=== PATIENT | female | born 1930 | race Caucasian/White ===

== ENCOUNTER 2017-05-04 20:29 | Emergency (ER) | payer OTHER ==
[~2017-05-04] VITALS: Ht 152.4 cm; Wt 54.4 kg
[~2017-05-04 20:29] MED LIST: FLUO10CA26 PO; LEVO50TA12 PO; LOSA100T15 PO; METO-302 PO; OMEP20TA68 PO; SIMV80TA5 PO; WARF1TAB47 PO
--- NOTE | 2017-05-04 20:40 | NUR ---
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 PER DENIES SOB, WITH NAUSEA. PER PATIENT PAIN HAS GOTTEN BETTER SINCE MORNING. PATIENT IS AAOX4, AMBULATORY WITH STEADY GAIT. VSS. AFEBRILE. NONDIAPHORETIC. CARDIAC AND VS MONITOR ONGOING. COMFORT MEASURES RENDERED. AWAITING FOR ER MD ENRIQUE.
--- NOTE | 2017-05-04 20:45 | NUR ---
DR BLAKELY AT BEDSIDE FOR EVAL.
--- NOTE | 2017-05-04 20:49 | NUR ---
TECH AT BEDSIDE FOR EKG.
--- NOTE | 2017-05-04 20:51 | NUR ---
started a saline lock on the lac g20, blood drawn and sent to lab.
[2017-05-04] MEDS ORDERED: ASPIRIN 325 MG TABLET ONE (20:53)
[2017-05-04 20:56] LABS: BASOPHILS # (AUTO) 0.1 /CMM (0.0-0.2); BASOPHILS % (AUTO) 0.6 % (0.0-2.0); EOSINOPHILS # (AUTO) 0.2 /CMM (0.0-0.7); EOSINOPHILS % (AUTO) 2.3 % (0.0-6.0); HEMATOCRIT 39 % (33-45); HEMOGLOBIN 12.9 g/dL (11.5-14.8); LYMPHOCYTES # (AUTO) 1.4 /CMM (0.8-4.8); LYMPHOCYTES % (AUTO) 14.5 % (20.0-44.0); MEAN CORPUSCULAR HEMOGLOBIN 32 PG (26.0-33.0); MEAN CORPUSCULAR HGB CONC 33 g/dl (31.0-36.0); MEAN CORPUSCULAR VOLUME 97 fL (82-100); MONOCYTES # (AUTO) 0.5 /CMM (0.1-1.30); MONOCYTES % (AUTO) 5.6 % (2.0-12.0); NEUTROPHILS # (AUTO) 7.5 /CMM (1.8-8.9); PLATELET COUNT (AUTO) 213 /CMM (150-450); RED BLOOD CELL COUNT(AUTO) 3.99 MIL/uL (4.0-5.2); WHITE BLOOD COUNT (AUTO) 9.7 K/uL (4.3-11.0)
[2017-05-04] MEDS ORDERED: ASPIRIN 325 MG TABLET PO ONE (21:00)
[2017-05-04 21:05] LABS: CALCIUM, SERUM 9.2 mg/dL (8.5-10.1); CARBON DIOXIDE 25 mmol/L (21-32); CHLORIDE 101 mmol/L (98-107); CREATININE 1.6 mg/dL (0.6-1.3); GLUCOSE 115 mg/dL (74-106); POTASSIUM 3.7 mmol/L (3.5-5.1); SODIUM SERUM 137 mmol/L (136-145); UREA NITROGEN, BLOOD 24 mg/dL (7-18)
[2017-05-04 21:09] LABS: INR 1.63 (0.87-1.13); PROTHROMBIN TIME 17.4 SECS (9.5-12.7)
[2017-05-04 21:27] LABS: TROPONIN I 7.651 ng/mL (0.00-0.056)
--- NOTE | 2017-05-04 21:36 | NUR ---
DR BLAKELY ON THE PHONE WITH SCALE TESTER DR MOMIN.
--- NOTE | 2017-05-04 21:41 | NUR ---
CALLED [facility] TELESTROKE [facility]OTLINE . FAXED OVER FACESHEET AND EKG.
--- NOTE | 2017-05-04 22:11 | NUR ---
second iv access started on the rac g18, good blood return, flushed with ns with ease, tape securely.
[2017-05-04] MEDS ORDERED: HEPARIN INFUSION/D5W 500 ML IV ONE (22:18)
--- NOTE | 2017-05-04 22:18 | NUR ---
DR BLAKELY ON THE PHONE WITH DR GOMEZ.
[2017-05-04] MEDS ORDERED: HEPARIN INFUSION/D5W 500 ML IV PRN (22:30)
--- NOTE | 2017-05-04 22:34 | NUR ---
CALL FROM [facility]. ETA FOR TRANSPORT 1 HR
--- NOTE | 2017-05-04 22:35 | NUR ---
heparin drip started at 825units/hr, verified with CN Chnete. Next ptt will be 0435. will monitor patient for adverse effects.
[2017-05-04 22:42] VITALS: BP 143/83
--- NOTE | 2017-05-04 22:46 | NUR ---
CALL FROM TIBURCIO WOLFF- [facility], ICU BED 2213, # FOR REPORT [phone].
--- NOTE | 2017-05-04 22:53 | NUR ---
Report given to Hilario WOLFF in [facility] ICU for transfer and brian.
--- NOTE | 2017-05-04 23:12 | NUR ---
Endorsed care to ems for transport, vss, patient remains alert oriented, no acute changes.
== END 2017-05-04 23:14 | disposition short-term general hospital (02) ==
LOC: ER 20:30 → UNDOADMIN 21:32 → TELE1 21:32 → ER 23:14
DX: R07.89 Other chest pain (principal); I48.91 Unspecified atrial fibrillation; R79.89 Other specified abnormal findings of blood chemistry; I10 Essential (primary) hypertension; M54.6 Pain in thoracic spine
CPT/HCPCS: 36415; 71010; 80048; 84484; 85025; 85730; 87081; 93005 ×2; 96374; 99291; 99292; A4606; J1644; Z7610

== ENCOUNTER 2017-10-01 18:25 | Inpatient (IN) | payer OTHER ==
[~2017-10-01] VITALS: Ht 157.5 cm; Wt 49.9 kg
[~2017-10-01 18:25] MED LIST changes: -METO-302 PO; +METO-356 PO; +OMEP20TA5 PO; -OMEP20TA68 PO
--- NOTE | 2017-10-01 18:40 | NUR ---
RECIEVED PT TO ED BED 01, PT WAS [id number] FROM HOME FOR POOR APPETITE, FAILURE TO THRIVE, GENERALIZED WEAKNESS. HER GRANDAUGHTER CALLED 911. PT HAS A H/O DEMENTIA. DENIES ANY COMPLAINTS AT THIS TIME. NAD VSS RR EVEN AND UNLABORED.KEPT WARM AND COMFORTABLE. PENDING ER MD ENRIQUE
[2017-10-01 18:57] LABS: BASOPHILS % (AUTO) 0.4 % (0.0-2.0); EOSINOPHILS % (AUTO) 0.1 % (0.0-6.0); HEMATOCRIT 40 % (33-45); HEMOGLOBIN 13.7 g/dL (11.5-14.8); LYMPHOCYTES # (AUTO) 0.6 /CMM (0.8-4.8); LYMPHOCYTES % (AUTO) 6.2 % (20.0-44.0); MEAN CORPUSCULAR HEMOGLOBIN 32 PG (26.0-33.0); MEAN CORPUSCULAR HGB CONC 34 g/dl (31.0-36.0); MEAN CORPUSCULAR VOLUME 93 fL (82-100); MONOCYTES # (AUTO) 0.8 /CMM (0.1-1.30); MONOCYTES % (AUTO) 8.3 % (2.0-12.0); NEUTROPHILS # (AUTO) 8.4 /CMM (1.8-8.9); PLATELET COUNT (AUTO) 255 /CMM (150-450); RDW COEFFICIENT OF VARIATION 13.6 (11.5-15.0); RED BLOOD CELL COUNT(AUTO) 4.34 MIL/uL (4.0-5.2); WHITE BLOOD COUNT (AUTO) 9.8 K/uL (4.3-11.0)
[2017-10-01] MEDS ORDERED: IV NS 0.9% 500 ML BAG IV ONE (19:00)
[2017-10-01 19:01] LABS: CALCIUM, SERUM 9.7 mg/dL (8.5-10.1); CARBON DIOXIDE 28 mmol/L (21-32); CHLORIDE 103 mmol/L (98-107); CREATININE 1.4 mg/dL (0.6-1.3); GLUCOSE 171 mg/dL (74-106); POTASSIUM 3.6 mmol/L (3.5-5.1); SODIUM SERUM 141 mmol/L (136-145); UREA NITROGEN, BLOOD 16 mg/dL (7-18)
[2017-10-01 19:07] LABS: ALANINE AMINOTRANSFERASE 14 U/L (12-78); ALBUMIN 3.5 g/dL (3.4-5.0); ALKALINE PHOSPHATASE 68 U/L (46-116); ASPARTATE AMINOTRANSFERASE 24 U/L (15-37); BILIRUBIN,DIRECT 0.2 mg/dL (0.0-0.2); BILIRUBIN,TOTAL 1.2 mg/dL (0.2-1.0); TOTAL PROTEIN, SERUM 8.1 g/dL (6.4-8.2)
[2017-10-01 19:09] LABS: TROPONIN I 0.063 ng/mL (0.00-0.056)
[2017-10-01 19:11] LABS: INR 1.29 (0.87-1.13); PROTHROMBIN TIME 13.4 SECS (9.5-12.7)
--- NOTE | 2017-10-01 19:16 | NUR ---
REPORT GIVEN TO VIVEK WOLFF FOR CONT OF CARE
[2017-10-01 19:25] LABS: APPEARANCE,URINE Clear (CLEAR); BILIRUBIN,URINE SMALL (NEGATIVE); BLOOD, URINE Trace-intact Ery/uL (NEGATIVE); COLOR,URINE Yellow (YELLOW); KETONES,URINE 15 (NEGATIVE); LEUKOCYTE ESTERASE ,URINE Negative (NEGATIVE); NITRITE, URINE Negative (NEGATIVE); PROTEIN,URINE 100 mg/dl (NEGATIVE); UGLUCOSE Negative (NEGATIVE)
--- NOTE | 2017-10-01 19:33 | NUR ---
xr at bedside.
[2017-10-01 19:44] LABS: BACTERIA,URINE Few /HPF (None Seen); SQUAMOUS EPITHELIAL CELL,UR Few /HPF (None Seen)
--- NOTE | 2017-10-01 20:21 | NUR ---
TELE ROOM 314-3
--- NOTE | 2017-10-01 20:27 | NUR ---
REPORT GIVEN TO LACEY WOLFF FOR ADMISSION AND FRANK.
[2017-10-01] MEDS ORDERED: ACETAMINOPHEN 650 MG/SUPP.RECT RC PRN (20:30)
[2017-10-01] MEDS ORDERED: Z GUARD REMEDY 2 OZ OINT TP PRN (20:30)
[2017-10-01] MEDS ORDERED: ONDANSETRON HCL/PF 4 MG/2 ML VIAL IVP PRN (20:30)
[2017-10-01 20:50] VITALS: BP 139/73
--- NOTE | 2017-10-01 20:50 | NUR ---
NEW ADMISSION RECEIVED REPORT FROM RAMIRO ESTABLISHMENT GUIDE, PATIENT RECEIVED FROM ER VIA BARBARA ACCOMPANIED BY STAFF. A & O X 1 WITH CONFUSION & FORGETFULNESS DUE TO DEMENTIA. ABLE TO MAKE SIMPLE NEEDS KNOWN WHEN ASKED. NO S/S OF PAIN, NO SOB, NO ACUTE DISTRESS NOTED. AT RA. IV ACCESS TO RAC RUNNING WITH IVF, INTACT PATENT. BODY ASSESSMENT DONE, NOTED LEFT KNEE SWOLLEN, PT DOESN'T REMEMBER WHAT CAUSED HER LEFT KNEE SWELLING, POOR HISTORIAN. ALL BELONGINGS ACCOUNTED FOR & DOCUMENTED BY PHYSICIAN IN PRIVATE PRACTICE. INCONTINENT OF B & BM, USES DIAPER. ON BED REST DUE TO WEAKNESS. UNABLE TO WALK, FALL RISK. NPO. SAFETY MEASURES IN PLACE, BED ALARM ON & IN LOW LOCKED POSITION. CALL LIGHT WITHIN REACH. MONITORING CLOSELY FOR SAFETY & COMFORT.
--- NOTE | 2017-10-01 20:50 | NUR ---
ADDENDUM PATIENT ON TELE MONITORING UPON ADMISSION WITH A FIB 86. NO OTHER COMPLICATIONS NOTED. MONITORING CLOSELY.
--- NOTE | 2017-10-01 20:53 | NUR ---
TRANSFERRED PATIENT TO TELE BED VIA ALS PROTOCOL, NO INCIDENT NOTED.
[2017-10-01 20:55] VITALS: BP 139/73
--- NOTE | 2017-10-01 21:54 | NUR ---
HELD ZOCOR PATIENT IS NPO & ZOCOR NOT GIVEN SCHEDULED. AWARE.
[2017-10-01] MEDS ORDERED: SIMVASTATIN 10 MG TABLET PO SCH (22:00)
--- NOTE | 2017-10-01 22:15 | NUR ---
CLARIFIED ORDER WITH MD SPOKE TO MD REGARDING PATIENT SCHEDULED FOR PO MEDS TONIGHT BUT NPO @ THIS TIME. MD ORDERED PT TO BE NPO EXCEPT MEDS EFFECTIVE NOW. NOTED & CARRIED OUT.
[2017-10-01] MEDS: IV D5/0.45 NACL 1,000 ML IV PRN (22:24)
[2017-10-02] VITALS (8 sets, daily range): BP systolic 124–138; BP diastolic 58–77
--- NOTE | 2017-10-02 02:05 | NUR ---
PATIENT CLERICAL ASSISTANT NOTES PT IS SLEEPING COMFORTABLY IN BED @ THIS TIME. MONITORING CLOSELY.
[2017-10-02] MEDS ORDERED: METOPROLOL SUCCINATE 25 MG TAB.SR.24H PO SCH (06:00)
[2017-10-02] MEDS ORDERED: METOPROLOL SUCCINATE 25 MG TAB.SR.24H ONE (06:14)
--- NOTE | 2017-10-02 06:35 | NUR ---
[facility] CLOSING NOTES PT SLEPT WELL @ NIGHT. A & O X 1, CONFUSED/FORGETFUL. ON BEDREST DUE TO GENERALIZED WEAKNESS, UNABLE TO WALK. ON TELE MONITORING WITH A FLUTTER 80/MNT. NO S/S OF PAIN, NO SOB, NO DISTRESS/DISCOMFORT NOTED. IV ACCESS TO RAC,INTACT PATENT, RUNNING WITH D5 1/2 NS. NPO EXCEPT MEDS. STRICT I & O. BED ALARM ON & IN LOW LOCKED POSITION. CALL LIGHT WITHIN REACH. WILL ENDORSE TO AM RN FOR CONTINUITY OF CARE.
--- NOTE | 2017-10-02 08:00 | NUR ---
COMMUNITY SUPPORT WORKER OPENING NOTES RECEIVED PT FROM NIGHTSHIFT NURSE INS TABLE CONDITION. PT IS A/O X1 AND CONFUSED. NO SOB OR SIGNS OF DISTRESS NOTED. BREATHING IS EVEN AND UNLABORED. PT IS AFIB ON THE TELE MONITOR WITH A HR OF 77. IV NOTED ON RIGHT AC INFUSING D5 1/2 NS @ 75ML/HR. PT IS TOLERATING INFUSION WELL. NO REDNESS OR SIGNS OF INFILTRATION NOTED. PT REMAINS NPO AT THIS TIME. BED IN LOW LOCKED POSITION, SIDE RAILS UP X3, BED ALARM ON, CALL LIGHT WITHIN REACH. WILL CONTINUE TO MONITOR.
[2017-10-02 08:17] LABS: BASOPHILS % (AUTO) 0.2 % (0.0-2.0); EOSINOPHILS % (AUTO) 0.1 % (0.0-6.0); HEMATOCRIT 32 % (33-45); HEMOGLOBIN 10.7 g/dL (11.5-14.8); LYMPHOCYTES # (AUTO) 1.5 /CMM (0.8-4.8); LYMPHOCYTES % (AUTO) 14.6 % (20.0-44.0); MEAN CORPUSCULAR HEMOGLOBIN 32 PG (26.0-33.0); MEAN CORPUSCULAR HGB CONC 34 g/dl (31.0-36.0); MEAN CORPUSCULAR VOLUME 94 fL (82-100); MONOCYTES # (AUTO) 1.3 /CMM (0.1-1.30); MONOCYTES % (AUTO) 12.5 % (2.0-12.0); NEUTROPHILS # (AUTO) 7.5 /CMM (1.8-8.9); NEUTROPHILS % (AUTO) 72.6 % (43.0-81.0); PLATELET COUNT (AUTO) 178 /CMM (150-450); RDW COEFFICIENT OF VARIATION 14.1 (11.5-15.0); RED BLOOD CELL COUNT(AUTO) 3.36 MIL/uL (4.0-5.2); WHITE BLOOD COUNT (AUTO) 10.4 K/uL (4.3-11.0)
[2017-10-02 08:25] LABS: CALCIUM, SERUM 8.5 mg/dL (8.5-10.1); CARBON DIOXIDE 26 mmol/L (21-32); CHLORIDE 107 mmol/L (98-107); CREATININE 1.1 mg/dL (0.6-1.3); GLUCOSE 126 mg/dL (74-106); MAGNESIUM 1.3 mg/dL (1.8-2.4); PHOSPHORUS 2.3 mg/dL (2.5-4.9); SODIUM SERUM 142 mmol/L (136-145); UREA NITROGEN, BLOOD 18 mg/dL (7-18)
[2017-10-02 08:26] LABS: CHOLESTEROL 104 mg/dL (<200); HDL CHOLESTEROL 40 mg/dL (40-60); LDL 56 mg/dL (0-99); THYROID STIMULATING HORMONE 1.584 uIU/mL (0.358-3.74); TRIGLYCERIDES 63 mg/dL (30-150)
[2017-10-02 08:37] LABS: INR 1.29 (0.87-1.13); PROTHROMBIN TIME 13.4 SECS (9.5-12.7)
[2017-10-02] MEDS: METOPROLOL SUCCINATE 25 MG TAB.SR.24H PO SCH (08:45)
[2017-10-02] MEDS: LEVOTHYROXINE SODIUM 50 MCG TABLET PO SCH (08:46)
[2017-10-02] MEDS: PANTOPRAZOLE 40 MG VIAL IV SCH (08:46)
--- NOTE | 2017-10-02 08:48 | NUR ---
MS RN NOTES 0900 METOPROLOL WAS NOT ADMINISTERED. PT RECEIVED IT 2HRS AGO FROM NIGHTSHIFT NURSE. CURRENT BP IS 138/77 HR 78.
[2017-10-02] MEDS: IV D5/0.45 NACL 1,000 ML IV PRN (11:03)
[2017-10-02] MEDS: Magnesium 1GM/D5W 100ML PREMIX 100 ML IV SCH ×4 (11:05→14:17)
[2017-10-02] MEDS: POTASSIUM CL. PREMIX PERIPHER. 50 ML IV SCH ×6 (11:05→16:39)
[2017-10-02] MEDS ORDERED: ENOXAPARIN SODIUM 40 MG/0.4 ML DISP.SYRIN SQ SCH ×2 (14:00→21:00)
[2017-10-02] MEDS: NEUTRA PHOS 1 POWD.PACKET PO SCH ×2 (14:16→21:48)
[2017-10-02] MEDS ORDERED: WARFARIN SODIUM 1 MG TABLET PO SCH (17:00)
--- NOTE | 2017-10-02 18:34 | NUR ---
MS RN CLOSING NOTES PT REMAINS STABLE AT THIS TIME. ALL NEEDS WERE MET DURING SHIFT AND ORDERS CARRIED OUT ACCORDINGLY. PT AT 75% OF HER DINNER. ORAL INTAKE ENCOURAGED THROUGHOUT THE DAY. PT WAS REPOSITIONED AND TURNED Q2HRS. ELECTROLYTES REPLACED ORDERED. HARMONY THE NATURAL RESOURCES SPECIALIST WAS MADE AWARE OF PT'S LEFT KNEE SWELLING. AN XRAY WAS ORDERED. CURRENTLY AWAITING PHYSIOLOGY TEACHER. SAFETY MEASURES REMAIN IN PLACE. WILL ENDORSE TO NIGHTSHIFT NURSE FOR FRANK
--- NOTE | 2017-10-02 19:20 | NUR ---
MS RN OPENING NOTES RECEIVED PT RESTING IN BED, AWAKE, GRAND DTR @ BEDSIDE. PT IS A/O X1 AND CONFUSED. NO SOB OR SIGNS OF DISTRESS NOTED. BREATHING IS EVEN AND UNLABORED. IV NOTED ON RIGHT AC WITH IFV RUNNING. PT IS TOLERATING INFUSION WELL. NO REDNESS OR SIGNS OF INFILTRATION NOTED. BED IN LOW LOCKED POSITION, SIDE RAILS UP X3, BED ALARM ON, CALL LIGHT WITHIN REACH. WILL CONTINUE TO MONITOR.
[2017-10-02] MEDS: IV 1/2NS 1000 ML 1,000 ML IV PRN (20:43)
--- NOTE | 2017-10-02 20:48 | NUR ---
PRN TYLENOL GIVEN PT'S BODY TEMP IS 100.2, MD AWARE WITH NEW ORDER, PRN TYLENOL GIVEN. WILL REASSESS FOR EFFECTIVENESS. REMOVED SOCKS & EXTRA BLANKETS. ENCOURAGING EXTRA PO FLUIDS TOLERATED WITH ASPIRATION PRECAUTIONS. OBSERVING CLOSELY.
--- NOTE | 2017-10-02 21:00 | NUR ---
NEW PO TYLENOL ORDER PATIENT NOTED WITH BODY TEMP 100.2, MD MADE AWARE WITH NEW ORDER TO GIVE PRN TYLENOL PO INSTEAD OF TYLENOL SUPPOSITORY SINCE PT IS NOT NPO ANYMORE. NOTED & CARRIED OUT. WILL REASSESS FOR TYLENOL EFFECTIVENESS.
[2017-10-02] MEDS: ACETAMINOPHEN 325 MG TABLET PO PRN (21:48)
--- NOTE | 2017-10-02 21:59 | NUR ---
MS RN NOTES PT'S HGB/HCT NOTED TO BE DROPPED THAN YESTERDAY, 10.7/32, PLT COUNT 178, PT 13.4, INR 1.29. MD KENNY MADE AWARE, SHE ORDERED TO CONTINUE LOVENOX & GIVEN ORDERED. NO ACTIVE BLEEDING NOTED @ THIS TIME. WILL CONTINUE TO MONITOR CLOSELY.
--- NOTE | 2017-10-02 23:00 | NUR ---
RECHECKED BODY TEMP PT'S BODY TEMP NOTED TO BE 97.6, TYLENOL WAS EFFECTIVE. CONTINUING TO MONITOR.
--- NOTE | 2017-10-03 06:21 | NUR ---
MS RN CLOSING NOTES PT SLEPT WELL @ NIGHT. A & O X 1, CONFUSED/FORGETFUL. ON BEDREST DUE TO GENERALIZED WEAKNESS. NO S/S OF PAIN, NO SOB, NO DISTRESS/DISCOMFORT NOTED @ THIS TIME. IV ACCESS TO RAC,INTACT PATENT, RUNNING WITH 1/2 NS @ 50 ML/HR. STRICT I & O. IN STABLE CONDITION @ THIS TIME. BED ALARM ON & IN LOW LOCKED POSITION. CALL LIGHT WITHIN REACH. WILL ENDORSE TO AM RN FOR CONTINUITY OF CARE.
--- NOTE | 2017-10-03 07:54 | NUR ---
RN MS Initial Notes Received pt laying in bed with HOB slighty elevated. A/o x1 w/ confusion, respirations are even and unlabored, not in any acute distress noted. Pt denies any pain at this time and will continue to monitor. RAC peripheral IV intact, dressing is kept clean and dry. Will continue to monitor throughout shift. Reminded pt to use call light when assistance is needed, call light is left within reach.
[2017-10-03 08:00] VITALS: BP_SYST 119
[2017-10-03 08:07] LABS: ALANINE AMINOTRANSFERASE 14 U/L (12-78); ALBUMIN 2.4 g/dL (3.4-5.0); ALKALINE PHOSPHATASE 66 U/L (46-116); ASPARTATE AMINOTRANSFERASE 26 U/L (15-37); BILIRUBIN,TOTAL 1.3 mg/dL (0.2-1.0); CALCIUM, SERUM 8.4 mg/dL (8.5-10.1); CARBON DIOXIDE 26 mmol/L (21-32); CHLORIDE 106 mmol/L (98-107); GLUCOSE 94 mg/dL (74-106); MAGNESIUM 2.2 mg/dL (1.8-2.4); PHOSPHORUS 3.2 mg/dL (2.5-4.9); POTASSIUM 3.7 mmol/L (3.5-5.1); SODIUM SERUM 139 mmol/L (136-145); TOTAL PROTEIN, SERUM 6.3 g/dL (6.4-8.2); UREA NITROGEN, BLOOD 13 mg/dL (7-18)
[2017-10-03 08:08] LABS: TROPONIN I 0.038 ng/mL (0.00-0.056)
[2017-10-03 08:12] LABS: BASOPHILS % (AUTO) 0.2 % (0.0-2.0); EOSINOPHILS # (AUTO) 0.1 /CMM (0.0-0.7); EOSINOPHILS % (AUTO) 0.7 % (0.0-6.0); HEMATOCRIT 33 % (33-45); LYMPHOCYTES # (AUTO) 1.4 /CMM (0.8-4.8); LYMPHOCYTES % (AUTO) 14.8 % (20.0-44.0); MEAN CORPUSCULAR HEMOGLOBIN 32 PG (26.0-33.0); MEAN CORPUSCULAR HGB CONC 34 g/dl (31.0-36.0); MEAN CORPUSCULAR VOLUME 95 fL (82-100); MONOCYTES # (AUTO) 0.7 /CMM (0.1-1.30); MONOCYTES % (AUTO) 6.9 % (2.0-12.0); NEUTROPHILS # (AUTO) 7.5 /CMM (1.8-8.9); NEUTROPHILS % (AUTO) 77.4 % (43.0-81.0); PLATELET COUNT (AUTO) 173 /CMM (150-450); RDW COEFFICIENT OF VARIATION 14.4 (11.5-15.0); RED BLOOD CELL COUNT(AUTO) 3.44 MIL/uL (4.0-5.2); WHITE BLOOD COUNT (AUTO) 9.7 K/uL (4.3-11.0)
[2017-10-03] MEDS: LEVOTHYROXINE SODIUM 50 MCG TABLET PO SCH (08:34)
[2017-10-03] MEDS: PANTOPRAZOLE 40 MG VIAL IV SCH (08:34)
[2017-10-03] MEDS: METOPROLOL SUCCINATE 25 MG TAB.SR.24H PO SCH (08:38)
[2017-10-03 08:58] LABS: INR 1.16 (0.87-1.13); PROTHROMBIN TIME 12.1 SECS (9.5-12.7)
[2017-10-03] MEDS ORDERED: RIVAROXABAN 10 MG TABLET PO SCH (09:00)
[2017-10-03 09:26] LABS: IRON, SERUM 15 ug/dl (50-175); TOTAL IRON BINDING CAPACITY 158 ug/dl (250-450)
[2017-10-03 09:39] LABS: FERRITIN 340 ng/mL (8-388)
[2017-10-03 09:42] VITALS: BP 112/66
--- NOTE | 2017-10-03 10:18 | NUR ---
Orthostatic BP Lying 110/59, HR 86 Sitting 118/66, HR 91 Standing-- unable Addendum: 10/03/17 at 1020 by AZIZA BROWNING RN Amended: Links added.
[2017-10-03 16:00] VITALS: BP 143/85
[2017-10-03] MEDS ORDERED: LORAZEPAM 0.5 MG TABLET PO ONE (16:30)
[2017-10-03] MEDS: RIVAROXABAN 15 MG TABLET PO SCH (17:00)
--- NOTE | 2017-10-03 19:04 | NUR ---
RN MS CLOSING NOTES ALL NEEDS MET AND RENDERED. ALL DUE MEDS GIVEN W/ NO ASE NOTED. A/O X1, WITH CONFUSION. RESPIRATIONS ARE EVEN AND UNLABORED, NOT IN ANY ACUTE DISTRESS NOTED. VITAL SIGNS WNL. PT HAD AN EPISODE OF AGITATION AND PULLED OUT IV. NOTIFIED DR. RAMIREZ W/ ORDERS FOR ATIVAN 0.5MG PO X1 NOW. INSERTED NEW PERIPHERAL TO RIGHT HAND AND RIGHT AC. DRESSING KEPT CLEAN AND DRY, INTACT. DENIES ANY PAIN DURING SHIFT. ENDORSED TO NEXT SHIFT FOR CONTINUITY FOR CARE.
--- NOTE | 2017-10-03 19:15 | NUR ---
MS RN NOTES RECEIVED PT IN BED, AWAKE, A/O X 1, REORIENTED PT. PT IS VERBALLY RESPONSIVE. FAMILY AT BEDSIDE. NO DISTRESS, NO SOB NOTED. RESPIRATION IS EVEN AND UNLABORED. NO C/O PAIN OR DISCOMFORT AT THIS TIME. IV SITE ON RAC INTACT AND PATENT. NO S/S OF INFILTRATION NOTED. IVF INFUSING WELL. ALL NEEDS ATTENDED AND MET. KEPT COMFORTABLE. SAFETY PRECAUTIONS OBSERVED. CALL LIGHT WITHIN REACH . WILL CONT TO MONITOR.
[2017-10-03 20:00] VITALS: BP 118/67
[2017-10-03 20:02] VITALS: BP 118/67
[2017-10-03] MEDS: HYDROCODONE/APAP 5/325MG 1 EACH TABLET PO PRN (22:17)
[2017-10-04] MEDS: IV 1/2NS 1000 ML 1,000 ML IV PRN (00:07)
--- NOTE | 2017-10-04 01:25 | NUR ---
PT IS ASLEEP AT THIS TIME, AROUSES EASILY. NO DISTRESS, NO SOB NOTED. NO C/O PAIN OR DISCOMFORT AT THIS TIME. IV SITE ON RAC AND RIGHT HAND REMAINS INTACT, IVF INFUSING WELL. SAFETY PRECAUTIONS OBSERVED. CALL LIGHT WITHIN REACH. WILL CONT TO MONITOR
--- NOTE | 2017-10-04 07:01 | NUR ---
MS RN NOTES PT IN BED, AWAKE, A/O X 1, CONFUSED, REORIENTATION DONE. PT IS VERBALLY RESPONSIVE. NO DISTRESS, NO SOB NOTED. RESPIRATION IS EVEN AND UNLABORED. NO C/O PAIN OR DISCOMFORT AT THIS TIME. IV SITE ON RAC INTACT AND PATENT. NO S/S OF INFILTRATION NOTED. IVF INFUSING WELL. ALL NEEDS ATTENDED AND MET. KEPT COMFORTABLE. REPOSITION Q2H SAFETY PRECAUTIONS OBSERVED. CALL LIGHT WITHIN REACH . WILL ENDORSE TO NEXT SHIFT FOR FRANK.
--- NOTE | 2017-10-04 07:51 | NUR ---
RN MS Initial Notes Received pt laying in bed with HOB slighty elevated. A/o x1 w/ confusion, respirations are even and unlabored, not in any acute distress noted. Pt denies any pain at this time and will continue to monitor. R hand and RAC peripheral IV intact, dressing is kept clean and dry. Will continue to monitor throughout shift. Bed is in locked position, low bed. Reminded pt to use call light when assistance is needed, call light is left within reach.
[2017-10-04 08:00] VITALS: BP 133/74
[2017-10-04] MEDS: LEVOTHYROXINE SODIUM 50 MCG TABLET PO SCH (08:33)
[2017-10-04] MEDS: PANTOPRAZOLE 40 MG VIAL IV SCH (08:33)
[2017-10-04] MEDS: METOPROLOL SUCCINATE 25 MG TAB.SR.24H PO SCH (08:34)
[2017-10-04 08:46] LABS: BASOPHILS % (AUTO) 0.2 % (0.0-2.0); EOSINOPHILS # (AUTO) 0.2 /CMM (0.0-0.7); HEMATOCRIT 31 % (33-45); HEMOGLOBIN 10.6 g/dL (11.5-14.8); LYMPHOCYTES # (AUTO) 1.4 /CMM (0.8-4.8); LYMPHOCYTES % (AUTO) 16.2 % (20.0-44.0); MEAN CORPUSCULAR HEMOGLOBIN 32 PG (26.0-33.0); MEAN CORPUSCULAR HGB CONC 34 g/dl (31.0-36.0); MEAN CORPUSCULAR VOLUME 95 fL (82-100); MONOCYTES # (AUTO) 0.7 /CMM (0.1-1.30); MONOCYTES % (AUTO) 8.2 % (2.0-12.0); NEUTROPHILS # (AUTO) 6.3 /CMM (1.8-8.9); NEUTROPHILS % (AUTO) 73.4 % (43.0-81.0); PLATELET COUNT (AUTO) 174 /CMM (150-450); RDW COEFFICIENT OF VARIATION 14.3 (11.5-15.0); RED BLOOD CELL COUNT(AUTO) 3.29 MIL/uL (4.0-5.2); WHITE BLOOD COUNT (AUTO) 8.6 K/uL (4.3-11.0)
[2017-10-04 09:22] LABS: ALANINE AMINOTRANSFERASE 18 U/L (12-78); ALBUMIN 2.3 g/dL (3.4-5.0); ALKALINE PHOSPHATASE 68 U/L (46-116); ASPARTATE AMINOTRANSFERASE 26 U/L (15-37); BILIRUBIN,DIRECT 0.2 mg/dL (0.0-0.2); CALCIUM, SERUM 8.5 mg/dL (8.5-10.1); CARBON DIOXIDE 27 mmol/L (21-32); CHLORIDE 106 mmol/L (98-107); CREATININE 0.9 mg/dL (0.6-1.3); GLUCOSE 79 mg/dL (74-106); POTASSIUM 3.7 mmol/L (3.5-5.1); SODIUM SERUM 139 mmol/L (136-145); TOTAL PROTEIN, SERUM 6.2 g/dL (6.4-8.2); UREA NITROGEN, BLOOD 15 mg/dL (7-18)
[2017-10-04] MEDS: SOD FERRIC GLUC 125 MG in IV NS 0.9% 100 ML IV SCH (15:07)
[2017-10-04 16:00] VITALS: BP 116/54
[2017-10-04] MEDS: RIVAROXABAN 15 MG TABLET PO SCH (16:50)
[2017-10-04] MEDS ORDERED: LIDOCAINE 1% INJ 50 ML MDV IJ ONE (17:30)
[2017-10-04] MEDS ORDERED: TRIAMCINOLONE ACETONIDE SUSP 40 MG/ML VIAL IM ONE (17:30)
[2017-10-04] MEDS ORDERED: BUPIVACAINE 0.5 % PF 150 MG/30 ML VIAL IJ ONE (17:30)
--- NOTE | 2017-10-04 17:30 | NUR ---
RN NOTES NON ADMIN MEDICATIONS ADMINISTERED BY DR. CAMEJO UTILITY SYSTEM REPAIRER, FOR PROCEDURE WILL CONTINUE TO MONITOR
--- NOTE | 2017-10-04 18:05 | NUR ---
RN NOTES S/P ARTHROCENTESIS PT S/P ARTHROCENTESIS BY DR. CAMEJO, TOLERATED WELL, LAB NOTIFIED OF SPECIMEN BEING COLLECTED, LAB WILL COLLECT, WILL CONTINUE TO MONITOR
--- NOTE | 2017-10-04 18:41 | NUR ---
RN MS CLOSING NOTES ALL DUE MEDS GIVEN W/ NO ASE NOTED. ALL NEEDS MET AND RENDERED. A/O X1, WITH CONFUSION. RESPIRATIONS ARE EVEN AND UNLABORED, NOT IN ANY ACUTE DISTRESS NOTED. VITAL SIGNS WNL. PERIPHERAL IV TO RIGHT AC AND RIGHT HAND STILL INTACT. DENIES ANY PAIN DURING SHIFT. LEFT KNEE ARTHOCENTESIS DONE WITH BODILY FLUIDS GIVEN TO LAB. PT TOLERATED PROCEDURE WELL. ENDORSED TO NEXT SHIFT FOR CONTINUITY FOR CARE.
--- NOTE | 2017-10-04 19:20 | NUR ---
MS RN NOTES RECEIVED PT IN BED, AWAKE, A/O X 1, WITH PERIODS OF CONFUSION, REORIENTED PT. PT IS VERBALLY RESPONSIVE. NO DISTRESS, NO SOB NOTED. RESPIRATION IS EVEN AND UNLABORED. NO C/O PAIN OR DISCOMFORT AT THIS TIME. IV SITE ON RAC INTACT AND PATENT. NO S/S OF INFILTRATION NOTED. IVF INFUSING WELL. PT WITH MULTIPLE ATTEMPTS OF PULLING OUT IV, SECURED IV PROPERLY. REMINDED PT NOT TO REMOVE IV. ALL NEEDS ATTENDED AND MET. KEPT COMFORTABLE. SAFETY PRECAUTIONS OBSERVED. CALL LIGHT WITHIN REACH . WILL CONT TO MONITOR.
[2017-10-04 20:00] VITALS: BP 138/95
[2017-10-04] MEDS: HYDROCODONE/APAP 5/325MG 1 EACH TABLET PO PRN (21:55)
--- NOTE | 2017-10-04 23:32 | NUR ---
PT IS VERY AGITATED, CONFUSED, CONSTANTLY SCREAMING AND TRYING TO GET OUT OF THE BED, AND ATTEMPTING TO PULL OUT IV. REDIRECTION, FREQUENT REORIENTATION DONE, TRYING TO DIVER PT'S ATTENTION BUT INEFFECTIVE, PLACED A CALL TO ZOYA GARCIA, WITH ORDER TO GIVE SEROQUEL 25 MG PO X 1, NOTED AND CARRIED OUT.
[2017-10-05] MEDS ORDERED: QUETIAPINE FUMARATE 25 MG TABLET PO SCH
[2017-10-05] MEDS ORDERED: QUETIAPINE FUMARATE 25 MG TABLET ONE (00:11)
[2017-10-05] MEDS: IV 1/2NS 1000 ML 1,000 ML IV PRN (02:15)
--- NOTE | 2017-10-05 03:15 | NUR ---
PT SLEEPING AT THIS TIME, AROUSES EASILY , NO DISTRESS , NO SOB AT THIS TIME. REMAINS STABLE . IV ON RAC INTACT AND PATENT. DENIES ANY PAIN OR DISCOMFORT AT THIS TIME. CALL LIGHT WITHIN REACH. WILL CONT TO MONITOR.
--- NOTE | 2017-10-05 06:25 | NUR ---
MS RN NOTES PT IN BED, SLEEPING AT THIS TIME, AROUSES EASILY. NO DISTRESS, NO SOB NOTED. RESPIRATION IS EVEN AND UNLABORED. REMAINS STABLE. NO C/O PAIN OR DISCOMFORT AT THIS TIME. IV SITE ON RAC INTACT AND PATENT. NO S/S OF INFILTRATION NOTED. IVF INFUSING WELL. ALL NEEDS ATTENDED AND MET. SAFETY PRECAUTIONS OBSERVED. CALL LIGHT WITHIN REACH . WILL ENDORSE TO NEXT SHIFT FOR FRANK.
--- NOTE | 2017-10-05 07:15 | NUR ---
RN NOTES PT IS SLEEPING IN BED, NO SIGNS OF DISTRESS NOTED. RESPIRATIONS ARE EVEN AND UNLABORED. IV ON RAC INTACT AND PATENT. SAFETY MEASURES ARE IN PLACE, CALL LIGHT IS IN REACH. WILL CONTINUE TO MONITOR.
[2017-10-05 08:00] VITALS: BP 121/80
[2017-10-05] MEDS: PANTOPRAZOLE 40 MG VIAL IV SCH (08:20)
[2017-10-05] MEDS: LEVOTHYROXINE SODIUM 50 MCG TABLET PO SCH (08:20)
[2017-10-05] MEDS: METOPROLOL SUCCINATE 25 MG TAB.SR.24H PO SCH (08:20)
[2017-10-05] MEDS: SOD FERRIC GLUC 125 MG in IV NS 0.9% 100 ML IV SCH (14:03)
[2017-10-05 16:00] VITALS: BP 111/63
[2017-10-05] MEDS: RIVAROXABAN 15 MG TABLET PO SCH (16:20)
--- NOTE | 2017-10-05 18:36 | NUR ---
RN NOTES PT IS SITTING UP IN BED, RESTING COMFORTABLY. PT ON RA, RESPIRATIONS ARE EVEN AND UNLABORED. IV ON RAC INTACT AND PATENT. ALL MEDS WERE GIVEN ORDERED AND PT NEEDS MET. PT REORIENTED NEEDED AND SKIN CARE PROVIDED. SAFETY MEASURES ARE IN PLACE, CALL LIGHT IS IN REACH. WILL ENDORSE TO HANDLE BAR ASSEMBLER RN FOR CONTINUITY OF CARE.
--- NOTE | 2017-10-05 19:30 | NUR ---
MS RN NOTES RECEIVED PT IN BED, AWAKE, A/O X 1, WITH PERIODS OF CONFUSION , AND ASKING FOR HER GRANDDAUGHTER, FER. PT REORIENTED. PT IS VERBALLY RESPONSIVE. NO DISTRESS, NO SOB NOTED. RESPIRATION IS EVEN AND UNLABORED. NO C/O PAIN OR DISCOMFORT AT THIS TIME. IV SITE ON RAC INTACT AND PATENT. NO S/S OF INFILTRATION NOTED. IVF INFUSING WELL. KEPT COMFORTABLE. SAFETY PRECAUTIONS OBSERVED. CALL LIGHT WITHIN REACH . WILL CONT TO MONITOR.
[2017-10-05 20:00] VITALS: BP 133/78
--- NOTE | 2017-10-06 06:46 | NUR ---
MS RN NOTES PT IN BED, ASLEEP, AROUSES EASILY, A/O X 1. PT IS VERBALLY RESPONSIVE. NO DISTRESS, NO SOB NOTED. RESPIRATION IS EVEN AND UNLABORED. NO C/O PAIN OR DISCOMFORT AT THIS TIME. IV SITE ON RAC INTACT AND PATENT. NO S/S OF INFILTRATION NOTED. IVF INFUSING WELL. KEPT COMFORTABLE. SAFETY PRECAUTIONS OBSERVED. CALL LIGHT WITHIN REACH . WILL ENDORSE TO NEXT SHIFT FOR FRANK.
--- NOTE | 2017-10-06 07:15 | NUR ---
RN NOTES PT IS RESTING IN BED COMFORTABLY, NO SIGNS OF DISTRESS NOTED. PT ON RA, RESPIRATIONS ARE EVEN AND UNLABORED. IV ON RAC INTACT AND PATENT. SAFETY MEASURES ARE IN PLACE, CALL LIGHT IS IN REACH. WILL CONTINUE TO MONITOR.
[2017-10-06 08:00] VITALS: BP 145/69
[2017-10-06] MEDS: PANTOPRAZOLE 40 MG VIAL IV SCH (08:19)
[2017-10-06] MEDS: LEVOTHYROXINE SODIUM 50 MCG TABLET PO SCH (08:19)
[2017-10-06] MEDS: METOPROLOL SUCCINATE 25 MG TAB.SR.24H PO SCH (08:20)
[2017-10-06] MEDS: SOD FERRIC GLUC 125 MG in IV NS 0.9% 100 ML IV SCH (14:24)
[2017-10-06 16:00] VITALS: BP_SYST 106; BP_SYST 131; BP_DIAS 56; BP_DIAS 66
[2017-10-06] MEDS: HYDROCODONE/APAP 5/325MG 1 EACH TABLET PO PRN (16:02)
[2017-10-06] MEDS: RIVAROXABAN 15 MG TABLET PO SCH (16:04)
--- NOTE | 2017-10-06 18:36 | NUR ---
RN NOTES PT IS SITTING UP IN BED, NO SIGNS OF DISTRESS NOTED. PT ON RA, RESPIRATIONS ARE EVEN AND UNLABORED. PT REORIENTED THROUGHOUT THE DAY NEEDED. IV ON L WRIST INTACT AND PATENT. ALL MEDS WERE GIVEN ORDERED AND PT NEEDS MET. NORCO GIVEN AT 1602 FOR PAIN CONTROL. SKIN CARE PROVIDED FOR PT AND REPOSITIONED Q2HRS. PT WAITING FOR PLACEMENT AT FACILITY, FAMILY AWARE. SAFETY MEASURES ARE IN PLACE, CALL LIGHT IS IN REACH. WILL ENDORSE TO MOTOR AND CONTROLS TESTER RN FOR CONTINUITY OF CARE.
--- NOTE | 2017-10-06 19:15 | NUR ---
RN INITIAL NOTES PATIENT RECEIVED IN BED, ALERT TO SELF, VERBALLY RESPONSIVE, NOTED WITH NO SOB, BREATHING EVEN AND UNLABORED, IN NO ACUTE DISTRESS AT THIS TIME, NO C/O PAIN, NO FACIAL GRIMACING NOTED AT THIS TIME. ALL PATIENT'S NEEDS ATTENDED TO. CALL LIGHT PLACED WITHIN EASY REACH. WILL CONTINUE TO MONITOR.
[2017-10-06 20:00] VITALS: BP 125/57
--- NOTE | 2017-10-07 05:15 | NUR ---
RN NOTES PATIENT'S IV LINE NOTED TO BE PULLED OUT. INSERTED A NEW IV PERIPHERAL LINE ON LEFT WRIST G#24. FLUSHED WITH NS, PATENT AND INTACT. Addendum: 10/07/17 at 0643 by MAITE DENISE RN MARTHA-SLEEVES PLACED ON PATIENT'S BILATERAL ARMS TO PREVENT PATIENT FROM PULLING OUT THE IV PERIPHERAL LINE, WELL PROTECT HER SKIN INTEGRITY.WILL CONTINUE TO MONITOR.
--- NOTE | 2017-10-07 06:40 | NUR ---
RN CLOSING NOTES PATIENT IN BED, ALERT TO SELF, NOTED WITH NO SOB, BREATHING EVEN AND UNLABORED, NOTED WITH NO FACIAL GRIMACING, NO C/O PAIN AT THIS TIME, IN NO ACUTE DISTRESS. ALL PATIENT'S NEEDS ATTENDED TO. KEPT PT SAFE AND DRY, CLEAN AND COMFORTABLE. PLACED CALL LIGHT WITHIN EASY REACH. WILL ENDORSE TO AM NURSE FOR CONTINUITY OF CARE.
[2017-10-07 08:00] VITALS: BP 157/88
--- NOTE | 2017-10-07 08:00 | NUR ---
RN NOTES RECEIVED PATIENT IN THE BED A/O X2/3, FORGETFUL, CALM, ENCOURAGED TO EXPRESS FEELINGS AND CONCERNS, NO ACUTE RESPIRATORY DISTRESS, LUNGS CLEAR DURING AUSCULTATION, V/S TAKEN , SCHEDULED MEDICATION ADMINISTERED, IV ACCESS ON LEFT WRIST, NEEDS ATTENDED AND ANTICIPATED, ASSIST TURN AND REPOSITION Q 2 HR, CALL LIGHT WITHIN TO REACH, CONTINUED MONITORING FOR SAFETY ALL THE TIME.
[2017-10-07] MEDS: PANTOPRAZOLE 40 MG VIAL IV SCH (09:49)
[2017-10-07] MEDS: LEVOTHYROXINE SODIUM 50 MCG TABLET PO SCH (09:50)
[2017-10-07] MEDS: METOPROLOL SUCCINATE 25 MG TAB.SR.24H PO SCH (09:50)
[2017-10-07] MEDS: HYDROCODONE/APAP 5/325MG 1 EACH TABLET PO PRN ×2 (10:04→23:45)
--- NOTE | 2017-10-07 10:04 | NUR ---
RN NOTES ADMINISTERED NARCO 5/325 MG PO PRN FOR GENERALIZED PAIN 03/17, V/S TAKEN BP -150/ 88, P-71, ENCOURAGED TO INCREASE FLUID INTAKE.
[2017-10-07] MEDS: SOD FERRIC GLUC 125 MG in IV NS 0.9% 100 ML IV SCH (15:24)
[2017-10-07 16:00] VITALS: BP 143/83
--- NOTE | 2017-10-07 16:00 | NUR ---
RN NOTES PATIENT IN THE BED NO ACUTE DISTRESS, PATIENT A/O X1/2, CONFUSED, DELUSIONAL, NO C/O PAIN AT THIS TIME, CALL LIGHT WITHIN TO REACH, SAFETY PRECAUTION MAINTAINED ALL THE TIME.
[2017-10-07] MEDS: RIVAROXABAN 15 MG TABLET PO SCH (17:25)
--- NOTE | 2017-10-07 18:30 | NUR ---
RN NOTES PATIENT MED COMPLIANT, V/S STABLE, NO ACUTE DISTRESS, PATIENT TURN AND REPOSITION IN THE BED, CALL LIGHT WITHIN TO REACH, ENDORSED ONCOMING NURSE FOR CONTINUATION OF CARE.
--- NOTE | 2017-10-07 19:40 | NUR ---
MS RN INITIAL NOTES PT IS IN BED RESTING, A/O X1, CONFUSED. VERY FORGETFUL. BREATHING EVENLY AND UNLABORED ON RA, NO SIGNS OF SOB OR DISTRESS. IV ACCESS IS INTACT AND PATENT WITH A SLEEVE OVER IT. DENIES PAIN AT THIS TIME. BED IS IN LOW AND LOCKED POSITION. BED ALARM IS ON. WILL CONTINUE TO MONITOR PT
[2017-10-07 20:34] VITALS: BP 148/93
--- NOTE | 2017-10-08 06:32 | NUR ---
MS RN CLOSING NOTES PT IS IN BED SLEEPING, NO SIGNS OF SOB OR DISTRESS. NO ACUTE CHANGES THROUGHOUT THE SHIFT. ALL NEEDS WERE ANTICIPATED AND MET. BED IS IN LOW AND LOCKED POSITION. WILL ENDORSE TO DAY SHIFT
[2017-10-08] MEDS: LEVOTHYROXINE SODIUM 50 MCG TABLET PO SCH (07:55)
[2017-10-08] MEDS: METOPROLOL SUCCINATE 25 MG TAB.SR.24H PO SCH (07:58)
[2017-10-08] MEDS: PANTOPRAZOLE 40 MG VIAL IV SCH (07:58)
[2017-10-08 08:00] VITALS: BP 153/80
--- NOTE | 2017-10-08 08:00 | NUR ---
RN NOTES RECEIVED PATIENT IN THE BED SLEEPING, NO ACUTE RESPIRATORY DISTRESS, IV ACCESS LEFT FOREARM INTACT, PATIENT AROUSE WHEN CALLED NAME OR TOUCHED, CALL LIGHT WITHIN TO REACH, SAFETY PRECAUTION MAINTAINED ALL THE TIME.
[2017-10-08 09:00] VITALS: BP 153/80
--- NOTE | 2017-10-08 10:00 | NUR ---
RN NOTES PATIENT EATING BREAKFAST, V/S STABLE, MED COMPLIANT, NO ACUTE DISTRESS, NEEDS ATTENDED AND ANTICIPATED, ENCOURAGED TO EXPRESS FEELINGS AND CONCERNS, CALL LIGHT WITHIN TO REACH, SAFETY PRECAUTION MAINTAINED ALL THE TIME.
--- NOTE | 2017-10-08 13:43 | NUR ---
RN NOTES PATIENT IN THE BED, NEED CONSTANT REDIRECTION, PATIENT TURN AND REPOSITION Q 2 HR, INCONTINENT APPLIED Z-GUARD, CALL LIGHT WITHIN TO REACH, CONTINUED MONITORING.
[2017-10-08] MEDS: SOD FERRIC GLUC 125 MG in IV NS 0.9% 100 ML IV SCH (14:05)
--- NOTE | 2017-10-08 15:33 | NUR ---
RN NOTES PATIENT IN THE BED NO ACUTE DISTRESS, FAMILY NEXT TO THE BED, ASSIST TURN AND REPOSITION Q 2HR, CALL LIGHT WITHIN TO REACH, CONTINUED MONITORING.
[2017-10-08 16:00] VITALS: BP 139/85
[2017-10-08] MEDS: RIVAROXABAN 15 MG TABLET PO SCH (17:39)
--- NOTE | 2017-10-08 18:00 | NUR ---
RN NOTES PATIENT IN THE BED, NO ACUTE DISTRESS, NO RESPIRATORY DISTRESS, PATIENT MED COMPLIANT, V/S STABLE, NEEDS ATTENDED AND ANTICIPATED. CALL LIGHT WITHIN TO REACH. ENDORSED ONCOMING NURSE FOR FRANK.
--- NOTE | 2017-10-08 19:57 | NUR ---
MS RN OPENING NOTES: RECEIVED PATIENT IN BED, AWAKE, NO COMPLAINS OF PAIN OR DISCOMFORT THIS TIME OF ASSESSMENT. PATIENT APPEARS PLEASANTLY CONFUSED AT TIMES AND FORGETFUL, HOWEVER, CALM AND COOPERATIVE. PATIENT WITH HL ON LEFT FA G#24 - NO SIGNS OF REDNESS OR INFECTION THIS TIME. HEPLOCK FLUSHING DONE. PLACED CALL LIGHT WITH IN REACH. KEPT PATIENT WARM AND DRY. WILL CONTINUE TO MONITOR PATIENT.
[2017-10-08 20:00] VITALS: BP 108/64
[2017-10-08 20:49] VITALS: BP 109/64
--- NOTE | 2017-10-09 01:13 | NUR ---
MS RN NOTES: PATIENT IN BED, ASLEEP, NO COMPLAINS THIS TIME. IV HEPLOCK INTACT AND IN PLACE. SAFETY AND FALL PRECAUTIONS OBSERVED. BED IN LOW AND LOCK POSITION. WILL CONTINUE TO MONITOR.
[2017-10-09] MEDS: LEVOTHYROXINE SODIUM 50 MCG TABLET PO SCH (06:27)
--- NOTE | 2017-10-09 07:00 | NUR ---
MS RN CLOSING NOTES: PATIENT IN BED, ASLEEP, EASILY AROUSES. HEPLOCK IN PLACE, FLUSHING GOOD AND SMOOTHLY. NO COMPLAINS OF PAIN OR DISCOMFORT THIS TIME OF ASSESSMENT. PLACED CALL LIGHT WITHIN PATIENT'S REACH. WILL CONTINUE TO MONITOR PATIENT.
--- NOTE | 2017-10-09 07:59 | NUR ---
MS RN OPENING NOTES RECEIVED PT FROM NIGHTSHIFT NURSE IN STABLE CONDITION. PT IS A/O X2. NO SOB OR SIGNS OF DISTRESS NOTED. BREATHING IS EVEN AND UNLABORED. SHE DENIES ANY PAIN AT THIS TIME. IV NOTED ON LEFT FA 24G. IV IS NOTED TO BE PATENT AND INTACT. BED IN LOW LOCKED POSITION, SIDE RAILS UP X3, CALL LIGHT WITHIN REACH, BED ALARM ON. WILL CONTINUE TO MONITOR.
[2017-10-09 08:00] VITALS: BP 152/79
[2017-10-09] MEDS: PANTOPRAZOLE 40 MG VIAL IV SCH (08:38)
[2017-10-09] MEDS: METOPROLOL SUCCINATE 25 MG TAB.SR.24H PO SCH (08:39)
[2017-10-09 16:00] VITALS: BP 147/69
[2017-10-09] MEDS: RIVAROXABAN 15 MG TABLET PO SCH (16:57)
[2017-10-09] MEDS: ACETAMINOPHEN 325 MG TABLET PO PRN (17:11)
--- NOTE | 2017-10-09 19:36 | NUR ---
MS RN CLOSING NOTES PT REMAINS STABLE. ALL NEEDS MET DURING SHIFT AND ORDERS CARRIED OUT ACCORDINGLY. ALL SAFETY MEASURES REMAIN IN PLACE. VITALS STABLE AT THIS TIME. WILL ENDORSE TO NIGHTSHIFT NURSE FOR FRANK
--- NOTE | 2017-10-09 20:00 | NUR ---
MS RN OPENING NOTES: RECEIVED PATIENT IN BED, ASLEEP, AROUSES EASILY. NO COMPLAINS OF PAIN OR DISCOMFORT THIS TIME OF ASSESSMENT. PATIENT HAS A HEPLOCK ON LEFT FOREARM G#24. NO SIGNS OF REDNESS OR INFECTION AT SITE. PLACED CALL LIGHT WITHIN PATIENT'S REACH. BED IN LOW AND LOCKED POSITION. SAFETY AND FALL PRECAUTIONS OBSERVED. WILL CONTINUE TO MONITOR PATIENT.
[2017-10-09 22:20] VITALS: BP 117/50
--- NOTE | 2017-10-10 | NUR ---
MS RN NOTES: PATIENT IN BED, ASLEEP. NO COMPLAINS THIS TIME OF ASSESSMENT. SAFETY PRECAUTIONS OBSERVED.
[2017-10-10] MEDS: LEVOTHYROXINE SODIUM 50 MCG TABLET PO SCH (06:30)
--- NOTE | 2017-10-10 07:30 | NUR ---
MS/RN OPENING NOTE RECEIVED PATIENT IN BED AWAKE. ALERT AND ORIENTED X1. REDIRECTION PROVIDED. RESPIRATION REGULAR AND UNLABORED. DENIES SOB, PAIN AT THIS TIME. LEFT FOREARM G24 PATENT AND NO S/SX INFILTRATION NOTED. CALL LIGHT WITHIN REACH. BED LOW AND LOCKED. SIDE RAIL X2 UP. WILL CONTINUE TO MONITOR.
[2017-10-10 08:00] VITALS: BP 121/89
--- NOTE | 2017-10-10 08:16 | NUR ---
MS RN NOTES: PATIENT IN BED, ASLEEP, EASILY AROUSES. HEPLOCK IN PLACE. NO REDNESS OR SIGNS OF INFECTION ON SITE. NO FUTHER COMPLAINS THIS TIME. WILL ENDORSE PATIENT TO DAY SHIFT NURSE.
[2017-10-10] MEDS: PANTOPRAZOLE 40 MG VIAL IV SCH (08:51)
[2017-10-10] MEDS: METOPROLOL SUCCINATE 25 MG TAB.SR.24H PO SCH (08:53)
[2017-10-10] MEDS ORDERED: Rivaroxaban PO (12:24)
[2017-10-10] MEDS: ACETAMINOPHEN 325 MG TABLET PO PRN (15:39)
[2017-10-10 16:00] VITALS: BP 127/55
[2017-10-10] MEDS: RIVAROXABAN 15 MG TABLET PO SCH (16:39)
--- NOTE | 2017-10-10 18:00 | NUR ---
MS/RN CLOSING NOTE PATIENT IN BED ASLEEP. BREATHING EVEN AND UNLABORED. IN NO APPARENT DISTRESS. BED LOW AND LOCKED. SIDE RAIL X2 UP. CALL LIGHT WITHIN REACH. WILL [facility]SE [facility].
--- NOTE | 2017-10-10 19:30 | NUR ---
RN OPENING NOTES PATIENT IS SLEEPING IN BED, EASY TO AROUSE, ALERT AND ORIENTED X1. VS STABLE. NO C/O PAIN AT THIS TIME. NO SOB NOTED. RESPIRATIONS EVEN AND UNLABORED. PATIENT IS READY TO BE DISCHARGED HOME. ALL PAPERS AND EXIT CARE DONE. IV REMOVED. WAITING FOR FAMILY MEMBERS TO COME. BED IN LOW AND LOCKED POSITION, SIDE RAILSX2. CALL LIGHT WITHIN EASY REACH. WILL CONTINUE TO MONITOR.
[2017-10-10 20:00] VITALS: BP 97/51
--- NOTE | 2017-10-10 21:30 | NUR ---
RN CLOSING NOTES PATIENT IS DISCHARGED HOME WITH FAMILY. VS STABLE. IV REMOVED. ALL BELONGINGS TAKEN. ALL NEEDS ARE MET AND MEDICATIONS GIVEN PER MD ORDER. EXIT CARE SIGNED. DISCHARGE TEACHING PROVIDED.
== END 2017-10-10 21:30 | disposition home health service (06) | DRG 280 ==
LOC: ER 18:26 → TELE 20:54 → MED 10-02 13:37
PROC: 0S9D3ZZ Drainage of Left Knee Joint, Percutaneous Approach (ICD-10-PCS; principal; 2017-10-04)
DX: I21.A1 Myocardial infarction type 2 (principal); G93.40 Encephalopathy, unspecified; E83.42 Hypomagnesemia; E83.39 Other disorders of phosphorus metabolism; I48.91 Unspecified atrial fibrillation; D64.9 Anemia, unspecified; F03.90 Unspecified dementia, unspecified severity, without behavioral disturbance, psychotic disturbance, mood disturbance, and anxiety; N18.9 Chronic kidney disease, unspecified; R62.7 Adult failure to thrive; E87.6 Hypokalemia; I10 Essential (primary) hypertension; Z79.01 Long term (current) use of anticoagulants; Z86.73 Personal history of transient ischemic attack (TIA), and cerebral infarction without residual deficits; Z95.2 Presence of prosthetic heart valve; M25.462 Effusion, left knee; M17.32 Unilateral post-traumatic osteoarthritis, left knee
CPT/HCPCS: 36415; 71010-TC; 73562; 80048-TC; 80053-TC; 80061-TC; 80076-TC; 81000-TC; 82728-TC; 83540-TC; 83735-TC; 84100-TC; 84155-TC; 84443-TC; 84484-TC; 85025-TC; 85610-TC; 85730-TC; 87070-TC; 87081-TC; 89051-TC; 89060-TC; 92611-TC; 93307-TC; 97116-TC; 97530-TC; A4606; A6402; C9113; J1650; J2916; J3301; J3475; J3480; J3490; J7030; J7040; Z7610

== ENCOUNTER 2018-01-10 15:42 | Emergency (ER) | payer OTHER ==
[~2018-01-10] VITALS: Ht 157.5 cm; Wt 47.2 kg
[~2018-01-10 15:42] MED LIST changes: -LOSA100T15 PO; +Rivaroxaban PO; -SIMV80TA5 PO; +SIMV80TA7 PO; -WARF1TAB47 PO
--- NOTE | 2018-01-10 16:00 | NUR ---
[id number] FROM HOME FOR REPORTS OF BEING MORE AGITATED, VISION PROBLEMS, " WALKING IN CIRCLES" PER FAMILY REPORT. BLOOD SUGAR 102. NOTED LEFT LEG WEAKNESS. PT AAOX3. VSS. SEEN BY MD FOR EVAL. SAFETY AND COMFORT MEASURES PROVIDED. WILL MONITOR.
[2018-01-10 16:23] LABS: BASOPHILS # (AUTO) 0.1 /CMM (0.0-0.2); BASOPHILS % (AUTO) 0.8 % (0.0-2.0); EOSINOPHILS % (AUTO) 3.6 % (0.0-6.0); HEMATOCRIT 38 % (33-45); LYMPHOCYTES # (AUTO) 1.4 /CMM (0.8-4.8); LYMPHOCYTES % (AUTO) 16.7 % (20.0-44.0); MEAN CORPUSCULAR HGB CONC 34 g/dl (31.0-36.0); MEAN CORPUSCULAR VOLUME 97 fL (82-100); MONOCYTES # (AUTO) 0.5 /CMM (0.1-1.30); MONOCYTES % (AUTO) 5.5 % (2.0-12.0); NEUTROPHILS # (AUTO) 5.9 /CMM (1.8-8.9); NEUTROPHILS % (AUTO) 73.4 % (43.0-81.0); PLATELET COUNT (AUTO) 226 /CMM (150-450); RDW COEFFICIENT OF VARIATION 12.6 (11.5-15.0); RED BLOOD CELL COUNT(AUTO) 3.91 MIL/uL (4.0-5.2); WHITE BLOOD COUNT (AUTO) 8.2 K/uL (4.3-11.0)
[2018-01-10 16:34] LABS: CALCIUM, SERUM 9.8 mg/dL (8.5-10.1); CARBON DIOXIDE 28 mmol/L (21-32); CHLORIDE 105 mmol/L (98-107); GLUCOSE 99 mg/dL (74-106); POTASSIUM 3.8 mmol/L (3.5-5.1); SODIUM SERUM 142 mmol/L (136-145); UREA NITROGEN, BLOOD 18 mg/dL (7-18)
[2018-01-10 16:37] LABS: INR 1.02 (0.85-1.15)
[2018-01-10 16:43] LABS: TROPONIN I 0.027 ng/mL (0.00-0.056)
--- NOTE | 2018-01-10 17:47 | NUR ---
IV removed. Catheter intact and site benign. Pressure and 4x4 applied to site. No bleeding noted.
--- NOTE | 2018-01-10 17:51 | NUR ---
Patient discharged to home in stable condition. Written and verbal after care instructions given. Patient verbalizes understanding of instruction.
[2018-01-10 17:52] VITALS: BP 140/88
== END 2018-01-10 17:53 | disposition home or self-care (01) ==
LOC: ER 15:44
DX: R41.82 Altered mental status, unspecified (principal); F03.90 Unspecified dementia, unspecified severity, without behavioral disturbance, psychotic disturbance, mood disturbance, and anxiety; I12.9 Hypertensive chronic kidney disease with stage 1 through stage 4 chronic kidney disease, or unspecified chronic kidney disease; N18.9 Chronic kidney disease, unspecified; Z86.73 Personal history of transient ischemic attack (TIA), and cerebral infarction without residual deficits; Z95.0 Presence of cardiac pacemaker; Z95.2 Presence of prosthetic heart valve
CPT/HCPCS: 36415; 71045; 80048; 82962; 84484; 85025; 85730; 93005; 99285; A4606; Z7610